=== PATIENT | male | born 1970 | race African-American/Black ===

== ENCOUNTER 2018-09-01 00:43 | Emergency (ER) | payer OTHER ==
[2018-09-01 01:32] LABS: #Basophils 0.2 thou/uL (0.0-0.2); #Eosinphils 0.3 thou/uL (0.0-0.7); #Lymphocytes 3.3 thou/uL (1.20-3.40); #Monocytes 0.6 thou/uL (0.11-0.59); #Neutrophils 4.6 thou/uL (1.40-6.50); %Eosinophils 2.9 % (0.0-10.0); %Lymphocytes 37.1 % (21.0-51.0); %Monocytes 6.4 % (0.0-10.0); %Neutrophils 51.6 % (42.0-75.0); Mean Corpuscular HGB CONC 33.5 g/dL (32.0-36.0); Mean Corpuscular Hemoglobin 31.4 pg (27.0-31.0); Mean Corpuscular Volume 93.7 fL (78.0-98.0); Mean Platelet Volume 8.5 fL (7.4-10.4); Platelet Count 226 thou/uL (130-400); RBC Distribution Width 12.7 % (11.5-14.5); Red Blood Cell (RBC) Count 5.42 mill/uL (4.70-6.10); White Blood Cell (WBC) Count 8.8 thou/uL (4.8-10.8)
[2018-09-01 02:02] LABS: ALT (SGPT) 38 U/L (8-55); AST (SGOT) 36 U/L (5-34); Albumin 4.5 g/dL (3.5-5.0); Alkaline Phosphatase 67 U/L (40-150); Anion Gap 16 mmol/L (10-20); BUN (Urea Nitrogen) 7 mg/dL (8.9-20.6); Bilirubin, Total 0.2 mg/dL (0.2-1.2); Calc. Creatinine Clearance 0 mL/min (70-130); Calcium 9.5 mg/dL (7.8-10.44); Carbon Dioxide 27 mmol/L (22-29); Chloride 102 mmol/L (98-107); Estimated GFR-MDRD Greater than 90; Globulin 3.2 g/dL (2.4-3.5); Glucose 103 mg/dL (70-105); Potassium 3.9 mmol/L (3.5-5.1); Protein, Total 7.7 g/dL (6.0-8.3); Sodium 141 mmol/L (136-145)
== END 2018-09-01 05:53 | disposition home or self-care (01) ==
LOC: ERS 00:43
DX: K92.0 Hematemesis (principal)
CPT/HCPCS: 36415; 80053; 84484; 85025; 93005

== ENCOUNTER 2019-07-08 12:35 | Outpatient (CLI) | payer OTHER ==
--- NOTE | 2019-07-08 12:51 | RAD ---
EXAM: Chest 2 views: HISTORY: Cough for one month COMPARISON: None. FINDINGS: There is a normal-sized cardiomediastinal silhouette. There is no evidence of consolidation, mass, or pleural effusion. The bones are unremarkable. IMPRESSION: No evidence of acute cardiopulmonary disease
== END 2019-07-08 12:36 | disposition home or self-care (01) ==
LOC: BICRAD 12:35
PROVIDERS: ATTEND Family Medicine
DX: R05 Cough (principal)
CPT/HCPCS: 71046

== ENCOUNTER 2019-08-12 12:08 | Emergency (ER) | payer OTHER ==
[2019-08-12 12:46] LABS: #Basophils 0.1 thou/uL (0.0-0.2); #Lymphocytes 0.8 thou/uL (1.20-3.40); #Monocytes 0.7 thou/uL (0.11-0.59); #Neutrophils 7.8 thou/uL (1.40-6.50); %Eosinophils 0.1 % (0.0-10.0); %Monocytes 7.1 % (0.0-10.0); %Neutrophils 82.8 % (42.0-75.0); Hemoglobin 13.4 g/dL (14.0-18.0); Mean Corpuscular HGB CONC 35.3 g/dL (32.0-36.0); Mean Corpuscular Volume 99.2 fL (78.0-98.0); Mean Platelet Volume 7.5 fL (7.4-10.4); Platelet Count 188 thou/uL (130-400); RBC Distribution Width 12.3 % (11.5-14.5); Red Blood Cell (RBC) Count 3.83 mill/uL (4.70-6.10); White Blood Cell (WBC) Count 9.4 thou/uL (4.8-10.8)
[2019-08-12 13:10] LABS: ALT (SGPT) 59 U/L (8-55); AST (SGOT) 85 U/L (5-34); Albumin 4.5 g/dL (3.5-5.0); Alkaline Phosphatase 87 U/L (40-110); Anion Gap 24 mmol/L (10-20); BUN (Urea Nitrogen) 4 mg/dL (8.9-20.6); Bilirubin, Total 0.3 mg/dL (0.2-1.2); Calc. Creatinine Clearance 0 mL/min (70-130); Calcium 9.1 mg/dL (7.8-10.44); Carbon Dioxide 21 mmol/L (22-29); Chloride 97 mmol/L (98-107); Estimated GFR-MDRD Greater than 90; Globulin 2.7 g/dL (2.4-3.5); Glucose 119 mg/dL (70-105); Potassium 3.3 mmol/L (3.5-5.1); Protein, Total 7.2 g/dL (6.0-8.3); Sodium 139 mmol/L (136-145)
--- NOTE | 2019-08-12 14:17 | RAD ---
CHEST 1 VIEW PORTABLE: Date: 08/12/2019 HISTORY: Chest pain. COMPARISON: 07/08/2019. FINDINGS: Heart size is normal. The lungs are clear. IMPRESSION: No acute intrathoracic disease. Stable from prior study. POS: [facility]
[2019-08-12 14:19] LABS: Lactic Acid 3.2 mmol/L (0.5-2.2)
[2019-08-12 14:22] LABS: Acetaminophen Less than 6.0 mcg/mL (10.0-30.0); Alcohol 17 mg/dL (Less than 10); Salicylate Less than 8.0 mg/dL (15.0-30.0)
[2019-08-12 16:47] LABS: Troponin I Less than 0.010 ng/mL (< 0.028)
[2019-08-12] MEDS ORDERED: Ketorolac Tromethamine 30 MG/ML VIAL ONE (17:04)
== END 2019-08-12 20:15 | disposition home or self-care (01) ==
LOC: ERS 12:08
DX: R07.9 Chest pain, unspecified (principal); I10 Essential (primary) hypertension; E78.5 Hyperlipidemia, unspecified; F31.9 Bipolar disorder, unspecified; F43.10 Post-traumatic stress disorder, unspecified
CPT/HCPCS: 36415; 71045; 80053; 80307; 82010; 83605; 84484; 85025; 85379; 93005; 96361; 96374; J1885

== ENCOUNTER 2019-08-25 22:37 | Inpatient (IN) | payer OTHER ==
--- NOTE | 2019-08-25 23:07 | RAD ---
EXAM: CHEST ONE VIEW HISTORY: Chest pain COMPARISON: 08/12/2019 FINDINGS: The cardiac silhouette and pulmonary vasculature is within normal limits. The lungs are clear. The os seous structures are intact. Chest is stable compared to prior exam. IMPRESSION: No acute cardiopulmonary process.
[2019-08-25 23:16] LABS: #Basophils 0.1 thou/uL (0.0-0.2); #Eosinphils 0.1 thou/uL (0.0-0.7); #Lymphocytes 3.8 thou/uL (1.20-3.40); #Monocytes 0.5 thou/uL (0.11-0.59); #Neutrophils 3.5 thou/uL (1.40-6.50); %Eosinophils 1.6 % (0.0-10.0); %Lymphocytes 47.3 % (21.0-51.0); %Monocytes 6.6 % (0.0-10.0); %Neutrophils 43.5 % (42.0-75.0); Hemoglobin 15.1 g/dL (14.0-18.0); Mean Corpuscular HGB CONC 35.2 g/dL (32.0-36.0); Mean Corpuscular Hemoglobin 34.9 pg (27.0-31.0); Mean Corpuscular Volume 99.1 fL (78.0-98.0); Platelet Count 231 thou/uL (130-400); RBC Distribution Width 12.7 % (11.5-14.5); Red Blood Cell (RBC) Count 4.33 mill/uL (4.70-6.10); White Blood Cell (WBC) Count 7.9 thou/uL (4.8-10.8)
[2019-08-25 23:53] LABS: ALT (SGPT) 52 U/L (8-55); AST (SGOT) 50 U/L (5-34); Albumin 4.6 g/dL (3.5-5.0); Alkaline Phosphatase 88 U/L (40-110); Anion Gap 19 mmol/L (10-20); BUN (Urea Nitrogen) 4 mg/dL (8.9-20.6); Bilirubin, Total 0.2 mg/dL (0.2-1.2); CK (CPK) 139 U/L (30-200); Calc. Creatinine Clearance 0 mL/min (70-130); Calcium 9.1 mg/dL (7.8-10.44); Carbon Dioxide 23 mmol/L (22-29); Chloride 102 mmol/L (98-107); Estimated GFR-MDRD Greater than 90; Globulin 3.3 g/dL (2.4-3.5); Glucose 87 mg/dL (70-105); Protein, Total 7.9 g/dL (6.0-8.3); Sodium 140 mmol/L (136-145)
[2019-08-25] MEDS ORDERED: Pantoprazole 40 MG VIAL ONE (23:57)
[2019-08-26 00:01] LABS: Amphetamine Not Detected (NotDetected); Barbiturates Screen Not Detected (NotDetected); Benzodiazepine Screen Not Detected (NotDetected); Cocaine Metabolite Screen Not Detected (NotDetected); Medtox Control Line Valid? VALID (VALID); Medtox Reader # READER 4; Methadone Not Detected (NotDetected); Methamphetamine Not Detected (NotDetected); Opiate Screen Not Detected (NotDetected); Oxycodone Screen Not Detected (NotDetected); Phencyclidine (PCP) Not Detected (NotDetected); THC/Cannabinoid Screen Not Detected (NotDetected); Tricyclic Screen Not Detected (NotDetected)
[2019-08-26 00:09] LABS: INR-International Normal Ratio 0.9; PTT 25.2 SEC (22.9-36.1); Prothrombin Time 12.1 SEC (12.0-14.7)
[2019-08-26] MEDS ORDERED: Diazepam 10 MG/2 ML SYRINGE ONE (00:12)
[2019-08-26 00:16] LABS: Alcohol 367 mg/dL (Less than 10); Lipase 72 U/L (8-78)
[2019-08-26] MEDS ORDERED: Thiamine HCl 200 MG/2 ML VIAL IM SCH (00:45)
[2019-08-26 03:05] VITALS: BMI 20.2
[2019-08-26] MEDS ORDERED: Ondansetron PF 4 MG/2 ML Vial IVP PRN (04:46)
[2019-08-26] MEDS ORDERED: Senokot S 8.6-50 MG TAB PO PRN (04:46)
[2019-08-26] MEDS ORDERED: Acetaminophen 325 MG TAB PO PRN (04:46)
--- NOTE | 2019-08-26 04:50 | PDOC.HHP ---
Hospitalist HPI - History of Present Illness Chest pain; Blood vomitus History of Present Illness: 49 yo male with history of alcohol dependence presented to ER due to chest pain and bloody vomitus. He states that he has been having 5/10 left sided stabbing nature chest pain x 2-3 wks without any precipitating factors. No aggravating factors and is relieved with massaging his chest. He also reports throwing up blood x 2-3 wks. He also reports blood in his stools and black colored stools. Associated with lightheadedness and shortness of breath. No palpitations, cough, wheezing, fever, chills. He reports some abdominal pain. No headache, changes in his vision. No burning or pain with urination. Hospitalist ROS - Review of Systems All other systems reviewed; all pertinent +/- noted in HPI/Subj Hospitalist History - Past Medical History Source: patient Cardiac: reports: HTN, Hyperlipidemia - Past Surgical History Past Surgical History: reports: no pertinent history (Reviewed) - Family History Family History: reports: no pertinent history (Reviewed) - Social History Smoking Status: Current every day smoker (1/2 PPD) Tobacco Type: cigarettes Alcohol: reports: Heavy (5-6 cans of beer daily; Needs to take it first thing in the morning to steady himself) Drugs: reports: none Living Situation: Other ([facility]) Activity level: independent ambulation - Exam General Appearance: awake alert, ill appearing Eye: PERRL, anicteric sclera ENT: normocephalic atraumatic, no oropharyngeal lesions, dry oral mucosa Neck: supple, symmetric, no JVD, no thyromegaly, no lymphadenopathy Heart: RRR, no murmur, no gallops, no rubs, normal peripheral pulses Respiratory: CTAB, no wheezes, no rales, no ronchi, normal chest expansion, no tachypnea Gastrointestinal: soft, non-distended, normal bowel sounds, no palpable masses, no bruit, tender to palpation (diffusely). negative: no guarding, no rigidity Extremities: no cyanosis, no edema Skin: normal turgor, no lesions, no rashes Neurological: cranial nerve grossly intact, normal sensation to touch, no weakness, no focal deficits Musculoskeletal: normal tone, normal strength, no muscle wasting Psychiatric: normal behavior, oriented to place. negative: oriented to person, oriented to time Hospitalist Results - Labs Result Diagrams: 08/25/19 23:07 08/25/19 23:31 Lab results: WBC 7.9 thou/uL (4.8-10.8) 08/25/19 23:07 Hgb 15.1 g/dL (14.0-18.0) 08/25/19 23:07 Hct 42.9 % (42.0-52.0) 08/25/19 23:07 MCV 99.1 fL (78.0-98.0) H 08/25/19 23:07 Plt Count 231 thou/uL (130-400) 08/25/19 23:07 Neutrophils % 43.5 % (42.0-75.0) 08/25/19 23:07 Sodium 140 mmol/L (136-145) 08/25/19 23:31 Potassium 4.0 mmol/L (3.5-5.1) 08/25/19 23:31 Chloride 102 mmol/L (98-107) 08/25/19 23:31 Carbon Dioxide 23 mmol/L (22-29) 08/25/19 23:31 BUN 4 mg/dL (8.9-20.6) L 08/25/19 23:31 Creatinine 0.79 mg/dL (0.7-1.3) 08/25/19 23:31 Glucose 87 mg/dL (70-105) 08/25/19 23:31 Calcium 9.1 mg/dL (7.8-10.44) 08/25/19 23:31 Total Bilirubin 0.2 mg/dL (0.2-1.2) 08/25/19 23:31 AST 50 U/L (5-34) H 08/25/19 23:31 ALT 52 U/L (8-55) 08/25/19 23:31 Alkaline Phosphatase 88 U/L (40-110) 08/25/19 23:31 Creatine Kinase 139 U/L (30-200) 08/25/19 23:31 Troponin I Less than 0.010 ng/mL (< 0.028) 08/25/19 23:31 Serum Total Protein 7.9 g/dL (6.0-8.3) 08/25/19 23:31 Albumin 4.6 g/dL (3.5-5.0) 08/25/19 23:31 Lipase 72 U/L (8-78) 08/25/19 23:31 - EKG Interpretation EKG: Sinus tachy; Non-specific ST-T changes - Radiology Interpretation Chest x-ray Status: image reviewed by me (No consolidation or CP angle blunting seen) Hospitalist H&P A/P - Problem (1) GI bleed Code(s): K92.2 - GASTROINTESTINAL HEMORRHAGE, UNSPECIFIED Status: Acute Qualifiers: GI bleed type/associated pathology: gastrointestinal hemorrhage with hematemesis Qualified Code(s): K92.0 - Hematemesis Assessment and Plan: Admit to inpatient status. High risk due to risk of worsening anemia and likely need for EGD Expected to stay at least 2 midnights GI consult NPO for now IV PPI BID Avoid anticoagulants Monitor H&H (2) Alcohol dependence Code(s): F10.20 - ALCOHOL DEPENDENCE, UNCOMPLICATED Status: Chronic Qualifiers: Substance use status: in withdrawal Complication of substance-induced condition: with delirium Qualified Code(s): F10.231 - Alcohol dependence with withdrawal delirium Assessment and Plan: Appears delirious Received Valium in the ER Placed on ASE protocol Monitor closely in IMCU Counselled regarding cessation (3) HTN (hypertension) Code(s): I10 - ESSENTIAL (PRIMARY) HYPERTENSION Status: Chronic Qualifiers: Hypertension type: essential hypertension Qualified Code(s): I10 - Essential (primary) hypertension Assessment and Plan: Mildly elevated BP likely due to alcohol withdrawals Hold HTN meds due to GI bleed and risk of shock (4) Dyslipidemia Code(s): E78.5 - HYPERLIPIDEMIA, UNSPECIFIED Status: Chronic - Plan Plan: CODE STATUS - FULL CODE
[2019-08-26] MEDS ORDERED: Pantoprazole 40 MG VIAL IVP SCH ×2 (05:00→09:00)
[2019-08-26] MEDS ORDERED: Diazepam 10 MG/2 ML SYRINGE IVP PRN (05:27)
[2019-08-26] MEDS ORDERED: Diazepam 10 MG/2 ML SYRINGE IVP SCH (05:30)
[2019-08-26] MEDS: Lactated Ringer's 1,000 ML IV SCH ×2 (05:51→15:35)
[2019-08-26] MEDS: Nicotine 14 MG PATCH TD SCH (05:52)
[2019-08-26] MEDS: Multivitamins, Adult 10 ML, Thiamine HCl 100 MG, Folic Acid 1 MG in Dextrose 5 %-0.45 %... IV SCH (05:55)
[2019-08-26 07:23] LABS: #Basophils 0.1 thou/uL (0.0-0.2); #Eosinphils 0.1 thou/uL (0.0-0.7); #Monocytes 0.4 thou/uL (0.11-0.59); #Neutrophils 2.5 thou/uL (1.40-6.50); %Basophils 1.3 % (0.0-1.0); %Eosinophils 2.1 % (0.0-10.0); %Lymphocytes 39.8 % (21.0-51.0); %Monocytes 8.1 % (0.0-10.0); %Neutrophils 48.7 % (42.0-75.0); Hemoglobin 13.8 g/dL (14.0-18.0); Mean Platelet Volume 7.2 fL (7.4-10.4); Platelet Count 212 thou/uL (130-400); RBC Distribution Width 12.6 % (11.5-14.5); Red Blood Cell (RBC) Count 4.06 mill/uL (4.70-6.10); White Blood Cell (WBC) Count 5.1 thou/uL (4.8-10.8)
[2019-08-26 07:36] LABS: Anion Gap 15 mmol/L (10-20); BUN (Urea Nitrogen) 4 mg/dL (8.9-20.6); Calc. Creatinine Clearance 94 mL/min (70-130); Calcium 8.4 mg/dL (7.8-10.44); Carbon Dioxide 25 mmol/L (22-29); Chloride 109 mmol/L (98-107); Estimated GFR-MDRD Greater than 90; Glucose 83 mg/dL (70-105); Potassium 3.7 mmol/L (3.5-5.1); Sodium 145 mmol/L (136-145)
[2019-08-26] MEDS ORDERED: Potassium Chloride 40 MEQ in Premix Bag 1 BAG IVPB SCH (08:45)
[2019-08-26] MEDS ORDERED: FLU VACC QS2019-20(6MOS UP)/PF 60 MCG/0.5 ML SYRINGE IM ONE (09:00)
[2019-08-26] MEDS: Multivitamin W/ Minerals 1 TAB PO SCH (09:25)
[2019-08-26] MEDS: Folic Acid 1 MG TAB PO SCH (09:26)
[2019-08-26] MEDS ORDERED: PROPOFOL 200 MG/20 ML VIAL ONE (14:44)
[2019-08-26] MEDS: Potassium Chloride 20 MEQ TAB PO SCH ×2 (15:39→19:47)
--- NOTE | 2019-08-26 18:30 | PDOC.EVN ---
Event Note - Event Note Event Note: Received patient this morning. Lying comfortably in bed and has no complaints. Hasn't had another episode of hemoptysis since arriving to [facility]. refused IV potassium. Will administer oral K s/p pending EGD
[2019-08-26] MEDS ORDERED: Potassium Chloride 20 MEQ TAB PO SCH (20:00)
[2019-08-26] MEDS: Pantoprazole 40 MG VIAL IVP SCH (20:23)
--- NOTE | 2019-08-26 20:52 | OP ---
DATE OF PROCEDURE: 08/26/2019 PROCEDURE PERFORMED: Esophagogastroduodenoscopy with biopsy. PREOPERATIVE DIAGNOSES: History of vomiting blood and having black tarry stool, atypical chest pain. POSTOPERATIVE DIAGNOSES: 1. Two esophageal ulcerations of the distal esophagus with esophagitis. 2. No [place] tear seen. 3. Normal stomach and duodenum. At the time of endoscopy, no bleeding seen. DESCRIPTION OF PROCEDURE: The patient was placed on his left lateral position and was given sedation by Anesthesia Department. A Pentax video gastroscope under direct vision was passed down the oropharynx past the GE junction into the stomach and subsequently into the descending duodenum. The upper two-thirds of the esophageal mucosa appeared normal. Over the distal esophagus, the patient was found to have ulceration x2 and esophagitis. The mucosa was hyperemic and edematous. Biopsy was obtained from the area. The GE junction showed no [place] tear. Retroflexion failed to show any pathology in fundus or cardia. In the gastric body and gastric antrum, no lesion was seen. The scope was advanced into the duodenal bulb and descending duodenum. No pathology was seen. The stomach was decompressed and the scope was removed. RECOMMENDATIONS: 1. Pantoprazole 40 once a day. 2. Diet as tolerated. 3. Consider detox regimen because he has a history of chronic alcohol abuse. If he does well, do consider discharge home. Job ID: [id number]
[2019-08-27] MEDS: Lactated Ringer's 1,000 ML IV SCH ×3 (00:38→20:11)
[2019-08-27 04:01] LABS: ALT (SGPT) 64 U/L (8-55); AST (SGOT) 83 U/L (5-34); Albumin 3.8 g/dL (3.5-5.0); Alkaline Phosphatase 78 U/L (40-110); Anion Gap 11 mmol/L (10-20); BUN (Urea Nitrogen) 4 mg/dL (8.9-20.6); Bilirubin, Total 0.5 mg/dL (0.2-1.2); Calc. Creatinine Clearance 84 mL/min (70-130); Calcium 9.1 mg/dL (7.8-10.44); Carbon Dioxide 28 mmol/L (22-29); Chloride 106 mmol/L (98-107); Estimated GFR-MDRD Greater than 90; Globulin 2.7 g/dL (2.4-3.5); Glucose 85 mg/dL (70-105); Potassium 4.3 mmol/L (3.5-5.1); Protein, Total 6.5 g/dL (6.0-8.3); Sodium 141 mmol/L (136-145)
[2019-08-27 04:03] LABS: #Basophils 0.1 thou/uL (0.0-0.2); #Eosinphils 0.2 thou/uL (0.0-0.7); #Lymphocytes 2.1 thou/uL (1.20-3.40); #Monocytes 0.7 thou/uL (0.11-0.59); #Neutrophils 3.4 thou/uL (1.40-6.50); %Basophils 1.8 % (0.0-1.0); %Eosinophils 2.7 % (0.0-10.0); %Lymphocytes 32.9 % (21.0-51.0); %Monocytes 10.2 % (0.0-10.0); %Neutrophils 52.4 % (42.0-75.0); Hemoglobin 14.2 g/dL (14.0-18.0); Mean Corpuscular HGB CONC 33.4 g/dL (32.0-36.0); Mean Corpuscular Hemoglobin 33.9 pg (27.0-31.0); Mean Platelet Volume 8.1 fL (7.4-10.4); Platelet Count 207 thou/uL (130-400); RBC Distribution Width 12.6 % (11.5-14.5); White Blood Cell (WBC) Count 6.5 thou/uL (4.8-10.8)
[2019-08-27] MEDS: Nicotine 14 MG PATCH TD SCH (04:50)
[2019-08-27] MEDS ORDERED: Lorazepam 2 MG/ML VIAL SLOW IVP PRN (07:40)
[2019-08-27] MEDS: Magnesium Oxide 400 MG TAB PO SCH (09:32)
[2019-08-27] MEDS: Thiamine 100 MG TAB PO SCH (09:32)
[2019-08-27] MEDS: Folic Acid 1 MG TAB PO SCH (09:32)
[2019-08-27] MEDS: Multivitamin W/ Minerals 1 TAB PO SCH (09:32)
[2019-08-27] MEDS: Pantoprazole 40 MG VIAL IVP SCH ×2 (09:32→20:11)
--- NOTE | 2019-08-27 09:44 | CON ---
DATE OF CONSULTATION: REFERRING DOCTOR[facility] REASON FOR CONSULTATION: Atypical chest pain, nausea, vomiting, history of vomiting blood and also vomiting coffee-ground material. HISTORY OF PRESENT ILLNESS: Eligio Beckford is a 49-year-old male, hospitalized in the ER yesterday with a history of atypical chest pain and also history of vomiting blood and also some coffee-ground material. He tells me that he has been doing this for several days. Apparently, he has normal CBC with normal hemoglobin. Chest pain what he had before has resolved. Chest pain was actually over the precordial area and was worse with taking deep breathing and also moving around. He has no pain over the retrosternal area. The pain is resolved. The patient gave history of vomiting blood and also some coffee-ground material. He also gives a history of some black tarry stool. He has no abdominal pain. Today, he is actually feeling better. He is not having more nausea or vomiting. Although he gave history of vomiting blood and having some black tarry stool, he has normal CBC. On admission, CBC showed hemoglobin to be 15.9 and today is 13.8. Hematocrit is 40.7 and MCV 100 . The patient had no relevant history. He denies any dysphagia or odynophagia. ALLERGIES: NONE. SOCIAL HISTORY: The patient gives history of past alcohol intake. He says he drinks can of beer every day. Denies any drug abuse. He is smoker, smokes 1/2 pack of cigarettes per day. MEDICAL ILLNESS: 1. Hypertension. 2. Hyperlipidemia. PAST SURGICAL HISTORY: Nothing significant. FAMILY HISTORY: No family history of cancer, stroke, heart disease, lung disease. MEDICATIONS: . REVIEW OF SYSTEMS: 10-point system reviewed. CONSTITUTIONAL: No history of any fever. No weight loss. Has good exercise tolerance. HEAD: No chronic headache. No dizziness. No syncope. Eyes; no diplopia, no blurred vision. Ears; no hearing loss. Nose; no nose bleed. Throat; no sore throat. LUNGS: No chronic coughing, hemoptysis, or dyspnea. CARDIOVASCULAR: No chest pain. No palpitation, no orthopnea, or PND. : No dysuria, hematuria. MUSCULOSKELETAL: Unremarkable. NEUROENDOCRINE: Unremarkable. HEMATOLOGICAL: Unremarkable. PHYSICAL EXAMINATION: GENERAL: He appears very comfortable. He is actually very sleepy VITAL SIGNS: He is afebrile. Pulse is 75, blood pressure . NECK: Supple. No adenitis or thyromegaly. CARDIOVASCULAR: First and second heart sounds heard. LUNGS: Clear to auscultation. ABDOMEN: Soft. No organomegaly. EXTREMITIES: Reveal no edema. LABORATORY DATA: WBC 7900 dropping to 5100, , hematocrit was 42.9, now 40.7, platelet count 212,000, polymorphs 89, . Serum chemistries; sodium 140, potassium 4, chloride 102, bicarb 23, BUN 4 and creatinine 0.79, glucose 87, calcium 9.1. AST 50, ALT 52, alkaline phosphatase 88, Troponin less than 0.01, albumin 4.6, lipase 72. IMPRESSIONS: 1. A 49-year-old male with a history of vomiting blood and also black tarry stool. However, he has normal CBC. The patient could have possibly a small [place] tear could account for . 2. Hyperlipidemia. 3. Hypertension. PLAN: 1. PPI. 2. Follow up H and H. 3. EGD later on today. 4. . 5. We will plan for EGD today and . Job ID: [id number]
[2019-08-27] MEDS: Multivitamins, Adult 10 ML, Thiamine HCl 100 MG, Folic Acid 1 MG in Dextrose 5 %-0.45 %... IV SCH (10:30)
--- NOTE | 2019-08-27 22:01 | PDOC.HOSPP ---
- Subjective Encounter Date: 08/27/19 Encounter Time: 10:00 Subjective: overnight, had EGD. This morning, complains of generalized weakness and has no other complaints. - Objective Vital Signs & Weight: Vital Signs (12 hours) Temp Pulse Resp BP Pulse Ox 08/27/19 19:28 98.8 F 94 17 127/83 96 08/27/19 17:05 98.8 F 80 18 135/83 98 08/27/19 11:38 98.2 F 78 18 141/98 H 99 Weight Admit Weight 121 lb 14.4 oz Weight 121 lb 14.4 oz Most Recent Monitor Data Heart Rate from ECG 63 NIBP 138/77 NIBP BP-Mean 97 Respiration from ECG 14 SpO2 100 I&O: 08/26/19 08/27/19 08/28/19 06:59 06:59 06:59 Intake Total 4137 212 Output Total 2850 500 Balance 1287 -288 Result Diagrams: 08/27/19 03:19 08/27/19 03:19 Hospitalist ROS - Review of Systems Constitutional: denies: fever, chills, sweats, weakness, malaise, other Respiratory: denies: cough, dry, shortness of breath, hemoptysis, SOB with excertion, pleuritic pain, sputum, wheezing, other Cardiovascular: denies: chest pain, palpitations, orthopnea, paroxysmal noc. dyspnea, edema, light headedness, other Gastrointestinal: denies: nausea, vomiting, abdominal pain, diarrhea, constipation, melena, hematochezia, other Genitourinary: denies: dysuria, frequency, incontinence, hematuria, retention, other Neurological: reports: weakness. denies: numbness, incoordination, change in speech, confusion, seizures - Medication Medications: Active Medications Generic Name Dose Route Start Last Admin Trade Name Freq PRN Reason Stop Dose Admin Folic Acid 1 mg 08/26/19 09:00 08/27/19 09:32 Folvite PO 1 mg DAILY MILLER Administration Multivitamins 10 ml/ Thiamine 1,011.2 mls @ 125 mls/hr 08/26/19 09:00 10:30 HCl 100 mg/ Folic Acid 1 mg/ IV 1,011.2 mls Dextrose/Sodium Chloride DAILY MILLER Administration Lactated Ringer's 1,000 mls @ 100 mls/hr 08/26/19 05:15 08/27/19 20:11 Lactated Ringer's IV 1,000 mls .Q10H MILLER Administration Iron/Minerals/Multivitamins 1 tab 08/26/19 09:00 08/27/19 09:32 Theragran M PO 1 tab DAILY MILLER Administration Lorazepam 2 mg 08/27/19 07:40 08/27/19 08:05 Ativan SLOW IVP 2 mg Q2H PRN Administration Alcohol Withdrawal Magnesium Oxide 400 mg 08/27/19 09:00 08/27/19 09:32 Magnesium Oxide PO 400 mg DAILY MILLER Administration Nicotine 14 mg 08/26/19 05:15 08/27/19 04:50 Nicoderm Patch TD 14 mg Q24HR MILLER Administration Pantoprazole Sodium 40 mg 08/26/19 21:00 08/27/19 20:11 Protonix IVP 40 mg Q12HR MILLER Administration Sodium Chloride 10 ml 08/26/19 21:00 08/27/19 20:12 Flush - Normal Saline IVF 10 ml Q12HR MILLER Administration Thiamine HCl 100 mg 08/27/19 09:00 08/27/19 09:32 Thiamine PO 100 mg DAILY MILLER Administration - Exam General Appearance: NAD, awake alert Neck: negative: no JVD Heart: RRR, no murmur, no gallops, no rubs, normal peripheral pulses Respiratory: CTAB, no wheezes, no rales, no ronchi, normal chest expansion, no tachypnea, normal percussion Gastrointestinal: soft, non-tender, non-distended, normal bowel sounds, no palpable masses, no hepatomegaly, no splenomegaly, no bruit Extremities: no edema Psychiatric: normal affect, normal behavior, A&O x 3 Hosp A/P - Plan #hematemesis -EGD showing two esophageal ulcerations with esophagitis; pathology confirms; no active bleeding -continue pantoprazole 40mg PO qd #alcohol abuse -per patient, no history of withdrawals -so far, hasn't exhibited withdrawal symptoms will likely be dced 3/6 if continues to not exhibit withdrawal symptoms
[2019-08-28] MEDS: Nicotine 14 MG PATCH TD SCH (05:44)
[2019-08-28] MEDS: Lactated Ringer's 1,000 ML IV SCH (05:46)
[2019-08-28 08:16] VITALS: BP 151/93; TEMP 98.1
[2019-08-28] MEDS: Thiamine 100 MG TAB PO SCH (09:05)
[2019-08-28] MEDS: Multivitamin W/ Minerals 1 TAB PO SCH (09:05)
[2019-08-28] MEDS: Magnesium Oxide 400 MG TAB PO SCH (09:05)
[2019-08-28] MEDS: Folic Acid 1 MG TAB PO SCH (09:05)
[2019-08-28] MEDS: Multivitamins, Adult 10 ML, Thiamine HCl 100 MG, Folic Acid 1 MG in Dextrose 5 %-0.45 %... IV SCH (09:26)
--- NOTE | 2019-08-29 12:03 | DIS ---
DATE OF ADMISSION: 08/26/2019 DATE OF DISCHARGE: 08/28/2019 Mr. Beckford is a 49-year-old male with medical history of alcohol abuse, presented to the ER due to chest pain and bloody vomitus. He was admitted to the CCU for possible severe acute GI bleed. GI was consulted and an EGD was done, which showed esophagitis with nonbleeding ulcers. Pathologic report showed active esophagitis consistent with gastroesophageal reflux. The patient was continued on his pantoprazole and remained hemodynamically stable throughout his inpatient stay. Hemoglobin has been stable as well. In addition to that, the patient had his last drink prior to presentation, so was monitored for alcohol withdrawal symptoms, which did not manifest even after more than 48 hours of stay. The patient was discharged back home after extensive education regarding his diagnosis as well as the role of alcohol abuse in the pathology and prognosis in case he continues to drink. He was discharged hemodynamically stable with no complaints and scheduled followup appointment with his primary care physician. Job ID: [id number]
--- NOTE | 2019-08-31 21:36 | PQF ---
TG GLEZ ADI [id number] CLINICAL DOCUMENTATION CLARIFICATION FORM: POST DISCHARGE Addendum to original discharge summary date: ____ Late entry note date: __ DATE:08/31/2019 ATTN:GRETEL AGUDELO Please exercise your independent, professional judgment in responding to the clarification form. Clinical indicators are provided on the bottom of this form for your review Please check appropriate box(s): kindly clarify the diagnosis hematemesis etiology; [ ] Hematemesis due to esophagitis [ x ] Hematemesis due to esophageal ulcer [ ] Other Esophagitis [ ] Other diagnosis [ ] Unable to determine For continuity of documentation, please document condition throughout progress notes and discharge summary. Thank You. CLINICAL INDICATORS - SIGNS / SYMPTOMS / LABS Gastrointestinal hemorrhage with hematemesis-Documented in H&P on 08/25 by Jose Faith MD Postoperative diagnosis:Two esophageal ulcerations of the distal esophagus with esophagitis -Documented in OP note on 08/25 by Ismael Walker GI was consulted and EGD was done which showed esophagitis with nonbleeding ulcers. Pathology report showed active esophagitis consistent with gastroesophageal reflux-Documented in Discharge summary on by Gretel Agudelo MD [employer] Postoperative diagnosis:Two esophageal ulcerations of the distal esophagus with esophagitis -Documented in OP note on 08/25 by Ismael Walker TREATMENT: Reason for Consultation:Atypical chest pain , Nausea , vomiting , History of vomiting blood and also vomiting coffe-ground material-Documented in consultation on 08/25 by Ismael Walker EGD with biopsy-Documented in OP note on 08/25 by Ismael Walker Continue pantoprazole 40 mg PO qd-Documented in hospitalist progress note on by Shemesh Gretel [employer] Human Resources Professional [employer]er[employer] (This form is maintained as a part of the permanent medical record) 2014 [employer]. All Rights Reserved [email or web address]
== END 2019-08-28 14:58 | disposition home or self-care (01) | DRG 381 ==
LOC: ERS 22:37 → IMCU/EMU 08-26 01:31 → T4-A 08-27 09:01
PROVIDERS: ADMIT Internal Medicine Sleep Medicine; ATTEND Internal Medicine
PROC: 0DB38ZX Excision of Lower Esophagus, Via Natural or Artificial Opening Endoscopic, Diagnostic (ICD-10-PCS; principal; 2019-08-26)
DX: K22.11 Ulcer of esophagus with bleeding (principal); F10.231 Alcohol dependence with withdrawal delirium; K21.0 Gastro-esophageal reflux disease with esophagitis; R07.89 Other chest pain; I10 Essential (primary) hypertension; E78.5 Hyperlipidemia, unspecified; F17.210 Nicotine dependence, cigarettes, uncomplicated; Y90.8 Blood alcohol level of 240 mg/100 ml or more
CPT/HCPCS: 36415; 71045; 80048; 80053; 80306; 80307; 82550; 83690; 84484; 85025; 85610; 85730; 88305; 88312; 88313; 93005; 96361; 96365; 96375; C9113; J2060; J2704; J3360; J3411; J3475; J3480; J3490; J7042

== ENCOUNTER 2019-08-29 06:35 | Emergency (ER) | payer OTHER ==
--- NOTE | 2019-08-29 07:41 | RAD ---
EXAM: Portable chest PROVIDED CLINICAL HISTORY: Chest pain COMPARISON: 08/25/2019 FINDINGS: Cardiac and mediastinal silhouette is within normal limits. No focal consolidation, pleural fluid or pneumothorax evident. IMPRESSION: No evidence for an acute cardiopulmonary process.
== END 2019-08-29 07:55 | disposition home or self-care (01) ==
LOC: ERS 06:35
DX: K20.9 Esophagitis, unspecified (principal); R07.9 Chest pain, unspecified; R11.10 Vomiting, unspecified; E78.5 Hyperlipidemia, unspecified; I10 Essential (primary) hypertension; F17.210 Nicotine dependence, cigarettes, uncomplicated
CPT/HCPCS: 71045; 93005

== ENCOUNTER 2019-09-02 03:36 | Emergency (ER) | payer OTHER ==
[2019-09-02 04:27] LABS: Hemoglobin 14.2 g/dL (14.0-18.0); Mean Corpuscular HGB CONC 34.6 g/dL (32.0-36.0); Mean Corpuscular Hemoglobin 34.9 pg (27.0-31.0); Mean Platelet Volume 7.9 fL (7.4-10.4); Platelet Count 196 thou/uL (130-400); RBC Distribution Width 12.6 % (11.5-14.5); Red Blood Cell (RBC) Count 4.07 mill/uL (4.70-6.10); White Blood Cell (WBC) Count 9.5 thou/uL (4.8-10.8)
[2019-09-02 04:52] LABS: ALT (SGPT) 29 U/L (8-55); AST (SGOT) 34 U/L (5-34); Albumin 4.4 g/dL (3.5-5.0); Alkaline Phosphatase 81 U/L (40-110); Anion Gap 16 mmol/L (10-20); BUN (Urea Nitrogen) 5 mg/dL (8.9-20.6); Bilirubin, Total 0.2 mg/dL (0.2-1.2); Calc. Creatinine Clearance 0 mL/min (70-130); Calcium 8.4 mg/dL (7.8-10.44); Carbon Dioxide 23 mmol/L (22-29); Chloride 106 mmol/L (98-107); Estimated GFR-MDRD Greater than 90; Globulin 2.6 g/dL (2.4-3.5); Glucose 222 mg/dL (70-105); Potassium 3.4 mmol/L (3.5-5.1); Sodium 142 mmol/L (136-145)
[2019-09-02 04:56] LABS: Eosinophils 1 % (0-10); Lymphocytes 54 % (21-51); MDiff Complete? YES; Monocytes 5 % (0-10); Neutrophil 40 % (42-75); Platelet Morphology Comment Appears Adequate; RBC Morphology Normal
[2019-09-02 05:10] LABS: Amphetamine Not Detected (NotDetected); Barbiturates Screen Not Detected (NotDetected); Benzodiazepine Screen Detected (NotDetected); Cocaine Metabolite Screen Not Detected (NotDetected); Medtox Control Line Valid? VALID (VALID); Medtox Reader # READER 1; Methadone Not Detected (NotDetected); Methamphetamine Not Detected (NotDetected); Opiate Screen Not Detected (NotDetected); Oxycodone Screen Not Detected (NotDetected); Phencyclidine (PCP) Not Detected (NotDetected); THC/Cannabinoid Screen Not Detected (NotDetected); Tricyclic Screen Not Detected (NotDetected)
--- NOTE | 2019-09-02 08:00 | RAD ---
Portable frontal chest radiograph: 09/02/2019 COMPARISON: 08/29/2019 HISTORY: Chest pain FINDINGS: Subtle increased density noted in the right cardiophrenic angle, which may represent nodula r density or artifact. No focal consolidation or alveolar edema. Heart and mediastinal contours appear grossly unremarkable. IMPRESSION: Mild increased density in the right costophrenic angle, which may be artifactual in natur e or represent pulmonary nodule. Recommend follow-up PA and lateral imaging of the chest. CODE T Code lung nodule
--- NOTE | 2019-09-05 14:16 | EKG ---
Test Reason : Blood Pressure : / mmHG Vent. Rate : 126 BPM Atrial Rate : 126 BPM P-R Int : 164 ms QRS Dur : 084 ms QT Int : 408 ms P-R-T Axes : 059 041 058 degrees QTc Int : 590 ms Sinus tachycardia Minimal voltage criteria for LVH, may be normal variant Nonspecific ST and T wave abnormality Abnormal ECG Confirmed by RANJIT SOLO DO ([id number]), greeting card editor LINDA MARQUES ([id number]) on 09/05/2019 2:16:14 PM Referred By: Confirmed By:RANJIT SOLO DO
== END 2019-09-02 06:18 | disposition home or self-care (01) ==
LOC: ERS 03:36
DX: K20.9 Esophagitis, unspecified (principal); R07.9 Chest pain, unspecified; F17.210 Nicotine dependence, cigarettes, uncomplicated; E78.5 Hyperlipidemia, unspecified; I10 Essential (primary) hypertension; F31.9 Bipolar disorder, unspecified; Z79.899 Other long term (current) drug therapy
CPT/HCPCS: 36415; 71045; 80053; 80306; 84484; 85025; 93005; 96360

== ENCOUNTER 2021-10-16 18:42 | Observation (INO) | payer OTHER ==
[2021-10-16] MEDS ORDERED: Nitroglycerin 0.4 MG TAB 1 EACH ONE (19:11)
[2021-10-16] MEDS ORDERED: Aspirin 325 MG TAB ONE (19:11)
[2021-10-16] MEDS ORDERED: Nitroglycerin 2% Ointment 1 INCH/1 GM Packet ONE (19:11)
[2021-10-16 19:23] LABS: #Lymphocytes 2.3 thou/uL (1.20-3.40); #Monocytes 0.6 thou/uL (0.11-0.59); %Basophils 0.3 % (0.0-1.0); %Eosinophils 0.5 % (0.0-10.0); %Lymphocytes 25.6 % (21.0-51.0); %Monocytes 6.4 % (0.0-10.0); %Neutrophils 67.2 % (42.0-75.0); Hemoglobin 17.1 g/dL (14.0-18.0); Mean Corpuscular HGB CONC 33.9 g/dL (32.0-36.0); Mean Corpuscular Hemoglobin 32.3 pg (27.0-31.0); Mean Corpuscular Volume 95.2 fL (78.0-98.0); Mean Platelet Volume 8.2 fL (7.4-10.4); Platelet Count 181 thou/uL (130-400); RBC Distribution Width 13.8 % (11.5-14.5); Red Blood Cell (RBC) Count 5.28 mill/uL (4.70-6.10); White Blood Cell (WBC) Count 8.9 thou/uL (4.8-10.8)
[2021-10-16 19:44] LABS: ALT (SGPT) 29 U/L (8-55); AST (SGOT) 32 U/L (5-34); Albumin 4.6 g/dL (3.5-5.0); Alkaline Phosphatase 70 U/L (40-110); Anion Gap 16 mmol/L (10-20); BUN (Urea Nitrogen) 9 mg/dL (8.4-25.7); Bilirubin, Total 0.4 mg/dL (0.2-1.2); Calc. Creatinine Clearance 0 mL/min (70-130); Calcium 9.4 mg/dL (7.8-10.44); Carbon Dioxide 25 mmol/L (22-29); Chloride 101 mmol/L (98-107); Globulin 3.4 g/dL (2.4-3.5); Glucose 190 mg/dL (70-105); Potassium 4.3 mmol/L (3.5-5.1); Sodium 138 mmol/L (136-145)
[2021-10-16] MEDS ORDERED: Nitroglycerin 0.4 MG TAB (25 Tab Bottle) SL PRN (20:39)
[2021-10-16] MEDS ORDERED: Ondansetron ODT 4 MG TAB PO PRN (20:41)
[2021-10-16] MEDS ORDERED: Acetaminophen 325 MG TAB PO PRN (20:41)
[2021-10-16] MEDS ORDERED: Ondansetron PF 4 MG/2 ML Vial IVP PRN (20:41)
[2021-10-16] MEDS ORDERED: Senokot S 8.6-50 MG TAB PO PRN (20:41)
[2021-10-16] MEDS ORDERED: Nicotine 14 MG PATCH TD SCH (20:45)
[2021-10-16] MEDS ORDERED: Lorazepam 1 MG TAB PO PRN (20:48)
[2021-10-16] MEDS ORDERED: HumaLOG 300 UNITS/3 ML VIAL SC PRN ×2 (20:55)
[2021-10-16] MEDS ORDERED: Dextrose 50% Abboject 50 ML SYRINGE SLOW IVP PRN (20:55)
[2021-10-16] MEDS ORDERED: Dextrose 5% in Water 1,000 ML IV PRN (20:55)
[2021-10-16] MEDS ORDERED: Thiamine HCl 200 MG/2 ML VIAL SLOW IVP SCH (21:00)
[2021-10-16] MEDS ORDERED: Electrolyte Replacement Protocol 1 EACH FS PRN (21:00)
[2021-10-16 21:23] LABS: Magnesium 2.1 mg/dL (1.6-2.6)
[2021-10-16 21:33] LABS: Phosphorus 1.5 mg/dL (2.3-4.7)
[2021-10-16] MEDS ORDERED: Ketorolac Tromethamine 30 MG/ML VIAL IVP PRN (21:33)
[2021-10-16] MEDS: Lorazepam 1 MG TAB PO SCH (22:06)
[2021-10-16] MEDS: Pantoprazole 40 MG VIAL IVP SCH (22:06)
[2021-10-16] MEDS: Sodium Chloride 0.9% 1,000 ML IV SCH ×2 (22:19)
[2021-10-16] MEDS ORDERED: Prazosin HCl 1 MG CAP PO SCH (22:45)
[2021-10-16 22:46] LABS: Troponin I Less than 0.010 ng/mL (< 0.028)
[2021-10-16] MEDS ORDERED: Potassium Phosphate 22 MMOL in Sodium Chloride 0.9% 250 ML 250 ML IVPB SCH (23:00)
[2021-10-16 23:44] LABS: SARS-CoV-2 NAA Rapid Test Not Detected (NotDetected)
[2021-10-16 23:49] VITALS: BMI 30.4
[2021-10-17] MEDS ORDERED: Lidocaine 2% Viscous Solution 20 ML, Aluminum & Magnesium Hydroxide 30 ML, Donnatal Eli... SSW SCH (00:15)
[2021-10-17] MEDS ORDERED: PHOS-NAK 1 PKT PACK PO SCH (01:00)
[2021-10-17 01:47] LABS: Amphetamine Not Detected (NotDetected); Barbiturates Screen Not Detected (NotDetected); Benzodiazepine Screen Detected (NotDetected); Cocaine Metabolite Screen Detected (NotDetected); Methadone Not Detected (NotDetected); Methamphetamine Not Detected (NotDetected); Opiate Screen Not Detected (NotDetected); Oxycodone Screen Not Detected (NotDetected); Phencyclidine (PCP) Not Detected (NotDetected); THC/Cannabinoid Screen Not Detected (NotDetected); Tricyclic Screen Not Detected (NotDetected)
[2021-10-17 01:52] LABS: Bacteria/HPF None Seen HPF (None Seen); Bilirubin Negative (Negative); Blood, Urine Negative (Negative); Clarity Clear (Clear); Glucose, Urine (Dipstick) Normal (Negative); Ketone, Urine Negative (Negative); Leukocyte 75 Leu/uL (Negative); Nitrite Negative (Negative); Protein, Urine (Dipstick) 30 mg/dL (Neg-Trace); Specific Gravity, Urine 1.028 (1.002-1.036); Squamous Epithelial 0-3 HPF (0-3); Urobilinogen Normal mg/dL (Less than 2)
[2021-10-17 01:57] LABS: Troponin I Less than 0.010 ng/mL (< 0.028)
[2021-10-17] MEDS: Lorazepam 1 MG TAB PO SCH ×3 (03:51→17:21)
[2021-10-17 05:15] LABS: #Basophils 0.1 thou/uL (0.0-0.2); #Eosinphils 0.1 thou/uL (0.0-0.7); #Lymphocytes 2.7 thou/uL (1.20-3.40); #Monocytes 0.6 thou/uL (0.11-0.59); #Neutrophils 3.8 thou/uL (1.40-6.50); %Basophils 0.7 % (0.0-1.0); %Eosinophils 1.4 % (0.0-10.0); %Lymphocytes 37.4 % (21.0-51.0); %Monocytes 7.8 % (0.0-10.0); %Neutrophils 52.7 % (42.0-75.0); Hemoglobin 15.6 g/dL (14.0-18.0); Mean Corpuscular HGB CONC 34.5 g/dL (32.0-36.0); Mean Corpuscular Hemoglobin 33.1 pg (27.0-31.0); Mean Corpuscular Volume 95.9 fL (78.0-98.0); Mean Platelet Volume 8.1 fL (7.4-10.4); Platelet Count 150 thou/uL (130-400); RBC Distribution Width 13.8 % (11.5-14.5); White Blood Cell (WBC) Count 7.2 thou/uL (4.8-10.8)
[2021-10-17 05:41] LABS: Anion Gap 13 mmol/L (10-20); BUN (Urea Nitrogen) 9 mg/dL (8.4-25.7); Calc. Creatinine Clearance 101 mL/min (70-130); Calcium 8.8 mg/dL (7.8-10.44); Carbon Dioxide 25 mmol/L (22-29); Cardiac Risk 6.7 (Less than 4.5); Chloride 103 mmol/L (98-107); Cholesterol 310 mg/dl (< 200 Desired); Glucose 100 mg/dL (70-105); HDL Cholesterol 46 mg/dL (>60 Neg Risk); Potassium 3.6 mmol/L (3.5-5.1); Sodium 137 mmol/L (136-145); Triglycerides 407 mg/dL (Less than 150)
[2021-10-17 05:43] LABS: Phosphorus 3.1 mg/dL (2.3-4.7)
[2021-10-17] MEDS: Pantoprazole 40 MG VIAL IVP SCH (08:16)
[2021-10-17] MEDS ORDERED: Aspirin Chewable 81 MG TAB PO SCH (09:00)
[2021-10-17] MEDS ORDERED: Folic Acid 1 MG TAB PO SCH (09:00)
[2021-10-17] MEDS ORDERED: Ziprasidone 20 MG CAP PO SCH (09:00)
[2021-10-17] MEDS ORDERED: Benztropine 1 MG TAB PO SCH (09:00)
[2021-10-17] MEDS ORDERED: Atorvastatin Calcium 20 MG TAB PO SCH (09:00)
[2021-10-17] MEDS ORDERED: Multivit, Therapeutic 1 TAB PO SCH (09:00)
[2021-10-17] MEDS ORDERED: traZODone HCl 50 MG TAB PO SCH (09:00)
[2021-10-17] MEDS ORDERED: OLANZapine 5 MG TAB PO SCH (09:00)
[2021-10-17] MEDS ORDERED: Hydrochlorothiazide 25 MG TAB PO SCH (09:00)
[2021-10-17] MEDS ORDERED: Prazosin HCl 1 MG CAP PO SCH ×2 (09:00→21:00)
[2021-10-17] MEDS: Sodium Chloride 0.9% 1,000 ML IV SCH (11:29)
[2021-10-17] MEDS ORDERED: Lidocaine 1% (PF) 30 ML VIAL ONE (13:41)
[2021-10-17] MEDS ORDERED: Communication Order-Pharmacy FS SCH (13:45)
[2021-10-17] MEDS ORDERED: ADENOSINE 60 MG/20 ML VIAL ONE (13:55)
[2021-10-17] MEDS ORDERED: Iopamidol 370 76% 100 ML VIAL ONE (13:57)
[2021-10-17] MEDS ORDERED: Fentanyl 100 MCG/2 ML VIAL ONE (14:12)
[2021-10-17] MEDS ORDERED: Midazolam HCl 2 mg/2 ml Vial ONE (14:12)
[2021-10-17 15:38] VITALS: TEMP 98.1
[2021-10-17 20:23] VITALS: BP 167/92
[2021-10-17] MEDS ORDERED: Lorazepam 1 MG TAB PO PRN (20:48)
[2021-10-17] MEDS ORDERED: traZODone HCl 150 MG TAB PO SCH (21:00)
[2021-10-17] MEDS ORDERED: Atorvastatin Calcium 40 MG TAB PO SCH (21:00)
[2021-10-17] MEDS ORDERED: Mirtazapine 30 MG Soltab PO SCH (21:00)
== END 2021-10-17 20:08 | disposition home or self-care (01) ==
LOC: ERS 18:42 → 2SW 20:25
PROVIDERS: ADMIT Internal Medicine; ATTEND Internal Medicine
PROC: 4A023N7 Measurement of Cardiac Sampling and Pressure, Left Heart, Percutaneous Approach (ICD-10-PCS; principal; 2021-10-17)
PROC: B2111ZZ Fluoroscopy of Multiple Coronary Arteries using Low Osmolar Contrast (ICD-10-PCS; 2021-10-17)
DX: R07.2 Precordial pain (principal); R11.2 Nausea with vomiting, unspecified; R10.9 Unspecified abdominal pain; E83.39 Other disorders of phosphorus metabolism; E86.0 Dehydration; E78.5 Hyperlipidemia, unspecified; I10 Essential (primary) hypertension; E11.65 Type 2 diabetes mellitus with hyperglycemia; K21.9 Gastro-esophageal reflux disease without esophagitis; F17.210 Nicotine dependence, cigarettes, uncomplicated; F10.10 Alcohol abuse, uncomplicated; R94.39 Abnormal result of other cardiovascular function study; E66.9 Obesity, unspecified; Z68.30 Body mass index [BMI] 30.0-30.9, adult; Z91.14 Patient's other noncompliance with medication regimen; Z79.899 Other long term (current) drug therapy; Z20.822 Contact with and (suspected) exposure to COVID-19
CPT/HCPCS: 36415; 36416; 71045; 78452; 80048; 80053; 80061; 80306; 81001; 83036; 83735; 83880; 84100; 84484; 85025; 93005; 93017; 93458; 96365; 96366; 96375; 96376; 99152; A9500; C9113; G0378; J0153; J2001; J2250; J3010; J3411; J7050; Q0162; Q9967

== ENCOUNTER 2021-10-30 10:59 | Emergency (ER) | payer OTHER ==
[2021-10-30 11:48] LABS: #Basophils 0.2 thou/uL (0.0-0.2); #Eosinphils 0.3 thou/uL (0.0-0.7); #Lymphocytes 3.8 thou/uL (1.20-3.40); #Monocytes 0.8 thou/uL (0.11-0.59); #Neutrophils 3.8 thou/uL (1.40-6.50); %Basophils 1.7 % (0.0-1.0); %Eosinophils 3.2 % (0.0-10.0); %Lymphocytes 43.1 % (21.0-51.0); %Monocytes 9.4 % (0.0-10.0); %Neutrophils 42.6 % (42.0-75.0); Hemoglobin 16.6 g/dL (14.0-18.0); Mean Corpuscular HGB CONC 33.8 g/dL (32.0-36.0); Mean Corpuscular Hemoglobin 32.6 pg (27.0-31.0); Mean Corpuscular Volume 96.5 fL (78.0-98.0); Mean Platelet Volume 7.7 fL (7.4-10.4); Platelet Count 172 thou/uL (130-400); RBC Distribution Width 13.4 % (11.5-14.5); Red Blood Cell (RBC) Count 5.08 mill/uL (4.70-6.10); White Blood Cell (WBC) Count 8.8 thou/uL (4.8-10.8)
[2021-10-30 11:58] LABS: ALT (SGPT) 32 U/L (8-55); AST (SGOT) 40 U/L (5-34); Albumin 4.6 g/dL (3.5-5.0); Alkaline Phosphatase 79 U/L (40-110); Anion Gap 19 mmol/L (10-20); BUN (Urea Nitrogen) 9 mg/dL (8.4-25.7); Bilirubin, Total 0.4 mg/dL (0.2-1.2); Calc. Creatinine Clearance 0 mL/min (70-130); Calcium 8.8 mg/dL (7.8-10.44); Carbon Dioxide 22 mmol/L (22-29); Chloride 103 mmol/L (98-107); Globulin 3.2 g/dL (2.4-3.5); Glucose 124 mg/dL (70-105); Potassium 3.8 mmol/L (3.5-5.1); Protein, Total 7.8 g/dL (6.0-8.3); Sodium 140 mmol/L (136-145)
[2021-10-30 11:58] LABS: Acetaminophen Less than 10.0 mcg/mL (10.0-30.0); Alcohol 381 mg/dL (Less than 10); Salicylate Less than 8.0 mg/dL (15.0-30.0)
[2021-10-30 12:30] LABS: Bilirubin Negative (Negative); Blood, Urine Negative (Negative); Clarity Clear (Clear); Glucose, Urine (Dipstick) Normal (Negative); Ketone, Urine Negative (Negative); Leukocyte Negative Leu/uL (Negative); Nitrite Negative (Negative); Protein, Urine (Dipstick) Negative (Neg-Trace); Specific Gravity, Urine 1.004 (1.002-1.036); Urobilinogen Normal mg/dL (Less than 2)
[2021-10-30 12:39] LABS: Amphetamine Not Detected (NotDetected); Barbiturates Screen Not Detected (NotDetected); Benzodiazepine Screen Not Detected (NotDetected); Cocaine Metabolite Screen Not Detected (NotDetected); Methadone Not Detected (NotDetected); Methamphetamine Not Detected (NotDetected); Opiate Screen Not Detected (NotDetected); Oxycodone Screen Not Detected (NotDetected); Phencyclidine (PCP) Not Detected (NotDetected); THC/Cannabinoid Screen Not Detected (NotDetected); Tricyclic Screen Not Detected (NotDetected)
== END 2021-10-30 16:25 | disposition home or self-care (01) ==
LOC: ERS 10:59
DX: F10.129 Alcohol abuse with intoxication, unspecified (principal); Y90.8 Blood alcohol level of 240 mg/100 ml or more; I10 Essential (primary) hypertension; E11.9 Type 2 diabetes mellitus without complications; E78.5 Hyperlipidemia, unspecified; K21.9 Gastro-esophageal reflux disease without esophagitis; F17.210 Nicotine dependence, cigarettes, uncomplicated
CPT/HCPCS: 36415; 70450; 71045; 80053; 80306; 80307; 81003; 83605; 84484; 85025; 93005

== ENCOUNTER 2021-12-11 13:01 | Emergency (ER) | payer OTHER ==
[2021-12-11 13:29] LABS: #Basophils 0.2 thou/uL (0.0-0.2); #Eosinphils 0.1 thou/uL (0.0-0.7); #Lymphocytes 3.1 thou/uL (1.20-3.40); #Neutrophils 3.6 thou/uL (1.40-6.50); %Basophils 2.1 % (0.0-1.0); %Lymphocytes 39.1 % (21.0-51.0); %Neutrophils 45.8 % (42.0-75.0); Hemoglobin 15.8 g/dL (14.0-18.0); Mean Corpuscular HGB CONC 33.5 g/dL (32.0-36.0); Mean Corpuscular Hemoglobin 32.5 pg (27.0-31.0); Mean Corpuscular Volume 96.8 fL (78.0-98.0); Mean Platelet Volume 6.7 fL (7.4-10.4); Platelet Count 289 thou/uL (130-400); RBC Distribution Width 12.8 % (11.5-14.5); Red Blood Cell (RBC) Count 4.86 mill/uL (4.70-6.10); White Blood Cell (WBC) Count 7.9 thou/uL (4.8-10.8)
[2021-12-11 13:34] LABS: Bilirubin Negative (Negative); Blood, Urine Negative (Negative); Clarity Clear (Clear); Glucose, Urine (Dipstick) Normal (Negative); Ketone, Urine Negative (Negative); Leukocyte Negative Leu/uL (Negative); Nitrite Negative (Negative); Protein, Urine (Dipstick) Negative (Neg-Trace); Specific Gravity, Urine 1.004 (1.002-1.036); Urobilinogen Normal mg/dL (Less than 2); pH, Urine 5.5 (5.0-9.0)
[2021-12-11 13:49] LABS: ALT (SGPT) 101 U/L (8-55); AST (SGOT) 87 U/L (5-34); Albumin 4.5 g/dL (3.5-5.0); Alkaline Phosphatase 62 U/L (40-110); Anion Gap 17 mmol/L (10-20); BUN (Urea Nitrogen) 9 mg/dL (8.4-25.7); Bilirubin, Total 0.3 mg/dL (0.2-1.2); Calc. Creatinine Clearance 0 mL/min (70-130); Calcium 8.7 mg/dL (7.8-10.44); Carbon Dioxide 24 mmol/L (22-29); Chloride 99 mmol/L (98-107); Globulin 3.2 g/dL (2.4-3.5); Glucose 115 mg/dL (70-105); Potassium 4.1 mmol/L (3.5-5.1); Protein, Total 7.7 g/dL (6.0-8.3); Sodium 136 mmol/L (136-145)
[2021-12-11] MEDS ORDERED: Lidocaine Viscous Sol 2% 15 ml UD Cup ONE (14:57)
[2021-12-11] MEDS ORDERED: Mag-Al 1200 mg/1200 mg/30 ML UDCUP ONE (14:57)
== END 2021-12-11 15:56 | disposition home or self-care (01) ==
LOC: ERS 13:01
DX: R10.13 Epigastric pain (principal); E78.00 Pure hypercholesterolemia, unspecified; E78.5 Hyperlipidemia, unspecified; I10 Essential (primary) hypertension; E11.9 Type 2 diabetes mellitus without complications; K21.9 Gastro-esophageal reflux disease without esophagitis; F17.210 Nicotine dependence, cigarettes, uncomplicated
CPT/HCPCS: 36415; 80053; 81003; 82550; 83690; 84484; 85025; 93005

== ENCOUNTER 2022-01-31 17:04 | Emergency (ER) | payer OTHER ==
[2022-01-31 17:49] LABS: #Eosinphils 0.1 thou/uL (0.0-0.7); #Lymphocytes 1.7 thou/uL (1.20-3.40); #Monocytes 0.6 thou/uL (0.11-0.59); #Neutrophils 3.2 thou/uL (1.40-6.50); %Basophils 0.8 % (0.0-1.0); %Monocytes 10.7 % (0.0-10.0); %Neutrophils 56.5 % (42.0-75.0); Hemoglobin 15.5 g/dL (14.0-18.0); Mean Corpuscular HGB CONC 33.2 g/dL (32.0-36.0); Mean Corpuscular Hemoglobin 32.4 pg (27.0-31.0); Mean Corpuscular Volume 97.8 fL (78.0-98.0); Mean Platelet Volume 8.6 fL (7.4-10.4); Platelet Count 142 thou/uL (130-400); RBC Distribution Width 12.7 % (11.5-14.5); Red Blood Cell (RBC) Count 4.77 mill/uL (4.70-6.10); White Blood Cell (WBC) Count 5.6 thou/uL (4.8-10.8)
[2022-01-31 18:10] LABS: Bilirubin Negative (Negative); Blood, Urine Negative (Negative); Clarity Clear (Clear); Glucose, Urine (Dipstick) Normal (Negative); Ketone, Urine 20 mg/dL (Negative); Leukocyte Negative Leu/uL (Negative); Nitrite Negative (Negative); Protein, Urine (Dipstick) Negative (Neg-Trace); Specific Gravity, Urine 1.006 (1.002-1.036); Urobilinogen Normal mg/dL (Less than 2); pH, Urine 5.5 (5.0-9.0)
[2022-01-31 18:11] LABS: ALT (SGPT) 35 U/L (8-55); AST (SGOT) 41 U/L (5-34); Albumin 4.6 g/dL (3.5-5.0); Alkaline Phosphatase 83 U/L (40-110); Anion Gap 21 mmol/L (10-20); BUN (Urea Nitrogen) 9 mg/dL (8.4-25.7); Bilirubin, Total 0.8 mg/dL (0.2-1.2); Calc. Creatinine Clearance 0 mL/min (70-130); Calcium 9.7 mg/dL (7.8-10.44); Carbon Dioxide 24 mmol/L (22-29); Chloride 95 mmol/L (98-107); Estimated GFR 91; Globulin 3.5 g/dL (2.4-3.5); Glucose 112 mg/dL (70-105); Potassium 3.5 mmol/L (3.5-5.1); Protein, Total 8.1 g/dL (6.0-8.3); Sodium 136 mmol/L (136-145)
[2022-01-31] MEDS ORDERED: Ketorolac Tromethamine 30 MG/ML VIAL ONE (18:53)
== END 2022-01-31 19:15 | disposition home or self-care (01) ==
LOC: ERS 17:04
DX: R31.9 Hematuria, unspecified (principal); I10 Essential (primary) hypertension; E11.9 Type 2 diabetes mellitus without complications; E78.5 Hyperlipidemia, unspecified; E78.00 Pure hypercholesterolemia, unspecified; K21.9 Gastro-esophageal reflux disease without esophagitis; F17.210 Nicotine dependence, cigarettes, uncomplicated; Z79.899 Other long term (current) drug therapy
CPT/HCPCS: 80053; 81003; 85025; 87086; 96372; 99283; J1885

== ENCOUNTER 2022-07-11 21:46 | Emergency (ER) | payer OTHER ==
[2022-07-11] MEDS ORDERED: Ondansetron PF 4 MG/2 ML Vial ONE (22:51)
[2022-07-11] MEDS ORDERED: Pantoprazole 40 MG VIAL ONE (22:51)
[2022-07-11 23:01] LABS: #Basophils 0.1 thou/uL (0.0-0.2); #Eosinphils 0.1 thou/uL (0.0-0.7); #Lymphocytes 2.4 thou/uL (1.20-3.40); #Monocytes 0.5 thou/uL (0.11-0.59); #Neutrophils 2.5 thou/uL (1.40-6.50); %Basophils 0.9 % (0.0-1.0); %Lymphocytes 43.7 % (21.0-51.0); %Monocytes 9.2 % (0.0-10.0); %Neutrophils 45.2 % (42.0-75.0); Hemoglobin 15.7 g/dL (14.0-18.0); Mean Corpuscular HGB CONC 34.2 g/dL (32.0-36.0); Mean Corpuscular Hemoglobin 34.3 pg (27.0-31.0); Mean Platelet Volume 7.5 fL (7.4-10.4); Platelet Count 197 10x3/uL (130-400); Red Blood Cell (RBC) Count 4.57 mill/uL (4.70-6.10); White Blood Cell (WBC) Count 5.5 10x3/uL (4.8-10.8)
[2022-07-11 23:21] LABS: Acetaminophen Less than 10.0 mcg/mL (10.0-30.0); Alcohol 391 mg/dL (Less than 10); Salicylate Less than 8.0 mg/dL (15.0-30.0)
[2022-07-11 23:22] LABS: ALT (SGPT) 42 U/L (8-55); AST (SGOT) 65 U/L (5-34); Albumin 4.5 g/dL (3.5-5.0); Alkaline Phosphatase 89 U/L (40-110); Anion Gap 22 mmol/L (10-20); BUN (Urea Nitrogen) 4 mg/dL (8.4-25.7); Bilirubin, Total 0.3 mg/dL (0.2-1.2); CK (CPK) 227 U/L (30-200); Calc. Creatinine Clearance 0 mL/min (70-130); Calcium 9.1 mg/dL (7.8-10.44); Carbon Dioxide 21 mmol/L (22-29); Chloride 97 mmol/L (98-107); Estimated GFR 109; Globulin 3.1 g/dL (2.4-3.5); Glucose 91 mg/dL (70-105); Lipase 145 U/L (8-78); Potassium 3.8 mmol/L (3.5-5.1); Protein, Total 7.6 g/dL (6.0-8.3); Sodium 136 mmol/L (136-145)
== END 2022-07-12 00:04 | disposition home or self-care (01) ==
LOC: ERS 21:46
DX: F10.129 Alcohol abuse with intoxication, unspecified (principal); K29.00 Acute gastritis without bleeding; E78.00 Pure hypercholesterolemia, unspecified; I10 Essential (primary) hypertension; E11.9 Type 2 diabetes mellitus without complications; K21.9 Gastro-esophageal reflux disease without esophagitis; B20 Human immunodeficiency virus [HIV] disease; F17.210 Nicotine dependence, cigarettes, uncomplicated; Y90.8 Blood alcohol level of 240 mg/100 ml or more; Z79.899 Other long term (current) drug therapy
CPT/HCPCS: 36415; 71045; 74177; 80053; 80307; 82550; 83690; 83880; 84484; 85025; 93005; 96374; 96375; C9113; J2405

== ENCOUNTER 2022-07-20 10:49 | Emergency (ER) | payer OTHER ==
[2022-07-20] MEDS ORDERED: Multivitamins, Adult 10 ML, Thiamine HCl 100 MG, Folic Acid 1 MG in Dextrose 5 %-0.45 %... IV SCH (12:00)
[2022-07-20 12:16] LABS: #Basophils 0.1 thou/uL (0.0-0.2); #Eosinphils 0.2 thou/uL (0.0-0.7); #Lymphocytes 2.7 thou/uL (1.20-3.40); #Monocytes 0.8 thou/uL (0.11-0.59); #Neutrophils 2.2 thou/uL (1.40-6.50); %Basophils 1.7 % (0.0-1.0); %Eosinophils 3.3 % (0.0-10.0); %Lymphocytes 45.2 % (21.0-51.0); %Monocytes 13.4 % (0.0-10.0); %Neutrophils 36.4 % (42.0-75.0); Mean Corpuscular HGB CONC 35.7 g/dL (32.0-36.0); Mean Corpuscular Hemoglobin 36.7 pg (27.0-31.0); Mean Platelet Volume 7.4 fL (7.4-10.4); Platelet Count 200 10x3/uL (130-400); RBC Distribution Width 11.8 % (11.5-14.5); Red Blood Cell (RBC) Count 4.08 mill/uL (4.70-6.10); White Blood Cell (WBC) Count 5.9 10x3/uL (4.8-10.8)
[2022-07-20 12:37] LABS: ALT (SGPT) 69 U/L (8-55); AST (SGOT) 154 U/L (5-34); Acetaminophen Less than 10.0 mcg/mL (10.0-30.0); Albumin 4.4 g/dL (3.5-5.0); Alcohol 426 mg/dL (Less than 10); Alkaline Phosphatase 68 U/L (40-110); Anion Gap 19 mmol/L (10-20); BUN (Urea Nitrogen) 4 mg/dL (8.4-25.7); Bilirubin, Total 0.2 mg/dL (0.2-1.2); CK (CPK) 167 U/L (30-200); Calc. Creatinine Clearance 0 mL/min (70-130); Calcium 8.7 mg/dL (7.8-10.44); Carbon Dioxide 22 mmol/L (22-29); Chloride 103 mmol/L (98-107); Estimated GFR 110; Globulin 2.9 g/dL (2.4-3.5); Glucose 90 mg/dL (70-105); Lipase 159 U/L (8-78); Potassium 3.6 mmol/L (3.5-5.1); Protein, Total 7.3 g/dL (6.0-8.3); Salicylate Less than 8.0 mg/dL (15.0-30.0); Sodium 140 mmol/L (136-145)
[2022-07-20 12:52] LABS: Bilirubin Negative (Negative); Blood, Urine Negative (Negative); Clarity Clear (Clear); Glucose, Urine (Dipstick) Normal (Negative); Ketone, Urine Negative (Negative); Leukocyte Negative Leu/uL (Negative); Nitrite Negative (Negative); Protein, Urine (Dipstick) Negative (Neg-Trace); Specific Gravity, Urine 1.003 (1.002-1.036); Urobilinogen Normal mg/dL (Less than 2)
[2022-07-20 13:10] LABS: Amphetamine Not Detected (NotDetected); Barbiturates Screen Not Detected (NotDetected); Benzodiazepine Screen Not Detected (NotDetected); Cocaine Metabolite Screen Not Detected (NotDetected); Methadone Not Detected (NotDetected); Methamphetamine Not Detected (NotDetected); Opiate Screen Not Detected (NotDetected); Oxycodone Screen Not Detected (NotDetected); Phencyclidine (PCP) Not Detected (NotDetected); THC/Cannabinoid Screen Not Detected (NotDetected); Tricyclic Screen Not Detected (NotDetected)
== END 2022-07-20 15:58 | disposition home or self-care (01) ==
LOC: ERS 10:49
DX: G93.41 Metabolic encephalopathy (principal); F10.129 Alcohol abuse with intoxication, unspecified; E78.00 Pure hypercholesterolemia, unspecified; I10 Essential (primary) hypertension; E11.9 Type 2 diabetes mellitus without complications; K21.9 Gastro-esophageal reflux disease without esophagitis; B20 Human immunodeficiency virus [HIV] disease; F17.210 Nicotine dependence, cigarettes, uncomplicated; Y90.8 Blood alcohol level of 240 mg/100 ml or more
CPT/HCPCS: 36415; 36416; 70450; 71045; 80053; 80306; 80307; 81003; 82550; 83690; 85025; 93005; 96374; J3411; J7042

== ENCOUNTER 2022-09-20 11:14 | Emergency (ER) | payer OTHER | END 2022-09-20 11:57 | LOC: ERS 11:14 | DX: S00.93XA Contusion of unspecified part of head, initial encounter (principal); W22.09XA Striking against other stationary object, initial encounter | CPT/HCPCS: 70450 ==

== ENCOUNTER 2022-10-26 05:55 | Emergency (ER) | payer OTHER ==
[2022-10-26] MEDS ORDERED: Dicyclomine 20 MG TAB ONE (06:06)
[2022-10-26] MEDS ORDERED: Lidocaine Viscous Sol 2% 15 ml UD Cup ONE (06:06)
[2022-10-26] MEDS ORDERED: Ondansetron PF 4 MG/2 ML Vial ONE (06:06)
[2022-10-26] MEDS ORDERED: Mag-Al 1200 mg/1200 mg/30 ML UDCUP ONE (06:06)
[2022-10-26 06:45] LABS: Anion Gap 17 mmol/L (10-20); BUN (Urea Nitrogen) 4 mg/dL (8.4-25.7); Calc. Creatinine Clearance 0 mL/min (70-130); Carbon Dioxide 20 mmol/L (22-29); Chloride 105 mmol/L (98-107); Potassium 3.3 mmol/L (3.5-5.1); Sodium 139 mmol/L (136-145)
[2022-10-26 06:46] LABS: ALT (SGPT) 24 U/L (8-55); AST (SGOT) 47 U/L (5-34); Albumin 4.2 g/dL (3.5-5.0); Alkaline Phosphatase 67 U/L (40-110); Bilirubin, Total 0.3 mg/dL (0.2-1.2); Calcium 8.6 mg/dL (7.8-10.44); Estimated GFR 107; Globulin 2.9 g/dL (2.4-3.5); Glucose 107 mg/dL (70-105); Protein, Total 7.1 g/dL (6.0-8.3)
[2022-10-26 07:17] LABS: #Basophils 0.1 thou/uL (0.0-0.2); #Eosinphils 0.3 thou/uL (0.0-0.7); #Lymphocytes 3.1 thou/uL (1.20-3.40); #Monocytes 0.5 thou/uL (0.11-0.59); #Neutrophils 2.8 thou/uL (1.40-6.50); %Basophils 1.3 % (0.0-1.0); %Eosinophils 4.1 % (0.0-10.0); %Lymphocytes 45.9 % (21.0-51.0); %Monocytes 7.6 % (0.0-10.0); MDiff Complete? YES; Mean Corpuscular HGB CONC 34.3 g/dL (32.0-36.0); Mean Corpuscular Hemoglobin 34.3 pg (27.0-31.0); Platelet Count 104 10x3/uL (130-400); Platelet Morphology Comment Appears Decreased; Polychromasia SLIGHT = 2-3 cells (100X) (0-2/hpf); RBC Distribution Width 11.5 % (11.5-14.5); Red Blood Cell (RBC) Count 4.07 mill/uL (4.70-6.10); White Blood Cell (WBC) Count 6.8 10x3/uL (4.8-10.8)
== END 2022-10-26 11:45 | disposition home or self-care (01) ==
LOC: ERS 05:55
DX: R07.9 Chest pain, unspecified (principal); F10.10 Alcohol abuse, uncomplicated; E87.6 Hypokalemia; Y90.9 Presence of alcohol in blood, level not specified; I10 Essential (primary) hypertension; E78.00 Pure hypercholesterolemia, unspecified; E11.9 Type 2 diabetes mellitus without complications
CPT/HCPCS: 36415; 71045; 80053; 83880; 84484; 85025; 93005; 96361; 96374; J2405

== ENCOUNTER 2023-03-01 16:22 | Emergency (ER) | payer OTHER ==
[~2023-03-01 16:22] MED LIST: Iopamidol-370 76% 500 ML MDV (1 ML CHARGE) ONE
[2023-03-01 17:08] LABS: #Monocytes 0.6 thou/uL (0.11-0.59); %Basophils 0.6 % (0.0-1.0); %Eosinophils 0.9 % (0.0-10.0); %Lymphocytes 20.5 % (21.0-51.0); %Monocytes 13.6 % (0.0-10.0); Hematocrit 41.9 % (42.0-52.0); Hemoglobin 14.6 g/dL (14.0-18.0); Mean Corpuscular HGB CONC 34.8 g/dL (32.0-36.0); Mean Corpuscular Hemoglobin 32.9 pg (27.0-31.0); Mean Corpuscular Volume 94.4 fl (78.0-98.0); Mean Platelet Volume 10.1 fL (7.4-10.4); Platelet Count 150 10x3/uL (130-400); RBC Distribution Width 13.2 % (11.5-14.5); Red Blood Cell (RBC) Count 4.44 mill/uL (4.70-6.10); White Blood Cell (WBC) Count 4.6 10x3/uL (4.8-10.8)
[2023-03-01 17:29] LABS: ALT (SGPT) 35 U/L (8-55); AST (SGOT) 59 U/L (5-34); Albumin 4.6 g/dL (3.5-5.0); Alkaline Phosphatase 98 U/L (40-110); Anion Gap 14 mmol/L (10-20); BUN (Urea Nitrogen) 5 mg/dL (8.4-25.7); Bilirubin, Total 0.5 mg/dL (0.2-1.2); Calc. Creatinine Clearance 0 mL/min (70-130); Calcium 9.8 mg/dL (7.8-10.44); Carbon Dioxide 28 mmol/L (22-29); Chloride 96 mmol/L (98-107); Estimated GFR 99; Globulin 3.4 g/dL (2.4-3.5); Glucose 185 mg/dL (70-105); Potassium 3.9 mmol/L (3.5-5.1); Sodium 134 mmol/L (136-145)
[2023-03-01 17:32] LABS: Troponin I Less than 0.010 ng/mL (< 0.028)
[2023-03-01] MEDS ORDERED: Ketorolac Tromethamine 30 MG/ML VIAL ONE (19:33)
[2023-03-01 20:13] LABS: HIV (1/2) Antibody/Antigen Non-Reactive (NonReactive); HIV 1/2 INDEX 0.15 S/CO (<1.00)
== END 2023-03-01 20:00 | disposition home or self-care (01) ==
LOC: ERS 16:22
DX: S20.212A Contusion of left front wall of thorax, initial encounter (principal); R10.9 Unspecified abdominal pain; I10 Essential (primary) hypertension; F17.210 Nicotine dependence, cigarettes, uncomplicated; E11.9 Type 2 diabetes mellitus without complications; Z79.899 Other long term (current) drug therapy; V27.49XA Other motorcycle driver injured in collision with fixed or stationary object in traffic accident, initial encounter
CPT/HCPCS: 71045; 71260; 74177; 80053; 84484; 85025; 87389; 93005; 94760; 96374; J1885; Q9967